=== PATIENT | female | born 1950 | race Caucasian/White ===

== ENCOUNTER → 2024-01-29 11:19 | Outpatient (REF) | payer MEDICARE, OTHER, SELFPAY | LOC: RAD 11:19 | PROVIDERS: ATTENDING PHYSICIAN Family Medicine | DX: M23.52 Chronic instability of knee, left knee (principal) | CPT/HCPCS: 73564 ==

== ENCOUNTER 2024-07-10 06:19 | Outpatient (RCR) | payer MEDICARE, OTHER, SELFPAY | END 2024-07-10 23:59 | disposition home or self-care (01) | LOC: RPT 06:19 | PROVIDERS: ATTENDING PHYSICIAN Family Medicine | DX: M23.52 Chronic instability of knee, left knee (principal); Z73.6 Limitation of activities due to disability; R26.2 Difficulty in walking, not elsewhere classified; M25.562 Pain in left knee; M62.81 Muscle weakness (generalized) | CPT/HCPCS: 97110; 97161 ==

== ENCOUNTER 2024-08-05 09:46 | Outpatient (RCR) | payer MEDICARE, OTHER, SELFPAY | END 2024-08-05 23:59 | disposition home or self-care (01) | LOC: RPT 09:46 | PROVIDERS: ATTENDING PHYSICIAN Family Medicine | DX: M23.52 Chronic instability of knee, left knee (principal); Z73.6 Limitation of activities due to disability; R26.2 Difficulty in walking, not elsewhere classified; M25.562 Pain in left knee; M62.81 Muscle weakness (generalized) | CPT/HCPCS: 97110; 97112; 97530 ==

== ENCOUNTER 2024-09-13 13:40 | Outpatient (RCR) | payer MEDICARE, OTHER, SELFPAY | END 2024-09-13 23:59 | disposition home or self-care (01) | LOC: RPT 13:40 | PROVIDERS: ATTENDING PHYSICIAN Family Medicine | DX: M23.52 Chronic instability of knee, left knee (principal); Z73.6 Limitation of activities due to disability; R26.2 Difficulty in walking, not elsewhere classified; M25.562 Pain in left knee; M62.81 Muscle weakness (generalized) | CPT/HCPCS: 97110; 97530 ==

== ENCOUNTER 2024-10-10 15:37 | Outpatient (RCR) | payer MEDICARE, OTHER, SELFPAY | END 2024-10-10 23:59 | disposition home or self-care (01) | LOC: RPT 15:37 | PROVIDERS: ATTENDING PHYSICIAN Family Medicine | DX: M23.52 Chronic instability of knee, left knee (principal); Z73.6 Limitation of activities due to disability; R26.2 Difficulty in walking, not elsewhere classified; M25.562 Pain in left knee; M62.81 Muscle weakness (generalized) | CPT/HCPCS: 97110; 97530 ==